=== PATIENT | male | born 2005 | race Hispanic/Latino ===

== ENCOUNTER 2024-10-26 14:24 | Emergency (ER) | payer BC ==
[2024-10-26] VITALS (13 sets, daily range): BP systolic 98–123; BP diastolic 61–96
[~2024-10-26] VITALS: Ht 182.9 cm; Wt 73.0 kg
[~2024-10-26 14:24] MED LIST: NO
[2024-10-26] MEDS ORDERED: SODIUM CHLORIDE 0.9% 1,000 ML IV ONE (15:50)
[2024-10-26] MEDS ORDERED: ONDANSETRON 4 MG/TAB ODT PO ONE (15:50)
[2024-10-26] MEDS ORDERED: ONDANSETRON HCl 4 MG/2 ML SDV IV ONE (15:50)
[2024-10-26 16:01] LABS: BASO% 0.2 % (0-3); EOS% 2.2 % (0-8); IMMATURE GRANULOCYTES 0.3 % (0.0-5.0); LYMPH% 20.4 % (15-41); MEAN CELL VOLUME 91.8 fL CALC (80.0-100.0); MEAN CORPUSCULAR HGB 30.9 pG CALC (26.0-32.0); MEAN CORPUSCULAR HGB CONC 33.7 g/dL CAL (32.0-36.0); MONO% 8.1 % (2-13); NEUT# 7.78 thou/uL (1.82-7.42); NEUT% 68.8 % (42-76); RED BLOOD COUNT 5.11 mill/uL (4.70-6.10); RED CELL DISTRI WIDTH 11.8 % (11.5-15.5)
[2024-10-26 16:06] LABS: HEMATOCRIT 46.9 % (39.0-50.0); HEMOGLOBIN 15.8 g/dl (14.0-18.0)
[2024-10-26 16:14] LABS: ALBUMIN 5.5 g/dL (3.2-5.0); CREATININE 0.9 mg/dL (0.7-1.3); POTASSIUM 3.7 mmol/l (3.5-5.1); TOTAL PROTEIN 9.4 g/dL (6.3-8.2)
[2024-10-26 16:15] LABS: BILIRUBIN, TOTAL 0.7 mg/dL (0.2-1.3)
[2024-10-26] MEDS ORDERED: PROMETHAZINE HCL 25 MG/ML AMP IM ONE (17:00)
[2024-10-26] MEDS ORDERED: AMOXICILLIN500 M2 PO (18:08)
[2024-10-26] MEDS ORDERED: ZOFRAN4 MG/TAB PO (18:08)
== END 2024-10-26 18:35 | disposition home or self-care (01) | DRG 153 ==
LOC: ED 14:24
PROVIDERS: Family Medicine
DX: J02.9 Acute pharyngitis, unspecified (principal); R11.2 Nausea with vomiting, unspecified; Z20.822 Contact with and (suspected) exposure to COVID-19
CPT/HCPCS: J2405; J2550; Q9967